=== PATIENT | female | born 1965 | race Caucasian/White ===

== ENCOUNTER 2016-11-07 00:25 | Emergency (ER) | payer MEDICAID, OTHER ==
[~2016-11-07] VITALS: Ht 170.2 cm; Wt 72.6 kg
[~2016-11-07 00:25] MED LIST: EFFEXOR50 MG PO; SYNTHROID0.075 MG PO
--- NOTE | 2016-11-07 00:25 | NUR ---
[facility] [place] TO ER OF1
[2016-11-07 00:29] VITALS: BP 110/76
--- NOTE | 2016-11-07 00:44 | NUR ---
PD CUSTODY PATIENT TO OVER FLOW
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
[2016-11-07] MEDS ORDERED: LIDOCAINE/EPI 1% 1:100000 20 ML VIAL INJ ONE (01:15)
[2016-11-07] MEDS ORDERED: BACITRACIN OINT 500 UNITS/GM PKT TP ONE (01:15)
[2016-11-07] MEDS ORDERED: HYDROcodone/APAP 5/325 MG 1 TAB TAB PO ONE (01:15)
--- NOTE | 2016-11-07 01:17 | NUR ---
MOVED TO ER BED 1, [place] PD AT BEDSIDE
--- NOTE | 2016-11-07 01:43 | NUR ---
BACITRACIN AND XYILOCAINE PULL AND IS AT BEDSIDE FOR ER MD DR PANIAGUA TO ADMINISTER
[2016-11-07] MEDS ORDERED: LIDOCAINE MPF 1% 50 MG/5 ML VIAL ONE (02:01)
[2016-11-07] MEDS ORDERED: LIDOCAINE 2% 1000 MG/50 ML VIAL INJ ONE (02:03)
[2016-11-07] MEDS ORDERED: ceFAZolin 1,000 MG VIAL IM ONE (02:30)
[2016-11-07] MEDS ORDERED: WATER STERILE 10 ML MC ONE (02:36)
--- NOTE | 2016-11-07 03:55 | NUR ---
Patient discharged with v/s stable. Written and verbal after care instructions given and explained. Patient alert, oriented and verbalized understanding of instructions. Ambulatory with steady gait. All questions addressed prior to discharge. ID band removed. Patient advised to follow up with PMD. Rx of NORCO 5/325, KEFLEX 500MG AND BACITRACIN 500U/G given. Patient educated on indication of medication including possible reaction and side effects. Opportunity to ask questions provided and answered.
[2016-11-07 03:56] VITALS: BP 117/72
== END 2016-11-07 03:55 ==
LOC: MED 00:25
DX: S62.522A Displaced fracture of distal phalanx of left thumb, initial encounter for closed fracture (principal); W34.00XA Accidental discharge from unspecified firearms or gun, initial encounter; Y93.89 Activity, other specified; Y92.89 Other specified places as the place of occurrence of the external cause; Y99.8 Other external cause status
CPT/HCPCS: 73140; 90471; 90715; 96372; 99284; J0690; J2001

== ENCOUNTER 2016-11-12 15:34 | Emergency (ER) | payer OTHER ==
[~2016-11-12] VITALS: Ht 165.1 cm; Wt 72.6 kg
[2016-11-12 17:01] VITALS: BP 149/96
--- NOTE | 2016-11-12 18:36 | NUR ---
PATIENT TO OF
--- NOTE | 2016-11-12 18:36 | NUR ---
DR. ELIS GONZALES PATIENT
--- NOTE | 2016-11-12 19:06 | NUR ---
awaiting for disposition
[2016-11-12] MEDS ORDERED: BACITRACIN OINT 500 UNITS/GM PKT TP ONE (19:16)
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
[2016-11-12 19:34] VITALS: BP 122/70
--- NOTE | 2016-11-12 19:37 | NUR ---
Patient discharged with v/s stable. Written and verbal after care instructions given and explained. Patient alert, oriented and verbalized understanding of instructions. Ambulatory with steady gait. All questions addressed prior to discharge. ID band removed. Patient advised to follow up with PMD. Rx of KEFLEX,BACTRIM,MOTRIN given. Patient educated on indication of medication including possible reaction and side effects. Opportunity to ask questions provided and answered.
== END 2016-11-12 19:37 | disposition home or self-care (01) ==
LOC: MED 15:34
DX: S61.012D Laceration without foreign body of left thumb without damage to nail, subsequent encounter (principal); W32.0XXD Accidental handgun discharge, subsequent encounter; Y92.810 Car as the place of occurrence of the external cause; Y99.8 Other external cause status

== ENCOUNTER 2016-11-29 13:01 | Emergency (ER) | payer OTHER ==
[~2016-11-29] VITALS: Ht 165.1 cm; Wt 72.6 kg
[2016-11-29 13:46] VITALS: BP 128/81
--- NOTE | 2016-11-29 14:49 | NUR ---
Patient ambulated to bed 01.
--- NOTE | 2016-11-29 14:59 | NUR ---
XRAY at bedside.
--- NOTE | 2016-11-29 15:00 | NUR ---
Dr. Lopez evaluating patient at bedside.
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
--- NOTE | 2016-11-29 16:37 | NUR ---
Patient ambulated to bed 06.
--- NOTE | 2016-11-29 16:41 | NUR ---
REPORT RECEIVED FROM EROS
[2016-11-29 17:23] VITALS: BP 122/76
--- NOTE | 2016-11-29 17:23 | NUR ---
Patient discharged with v/s stable. Written and verbal after care instructions given and explained. Patient verbalized understanding. Ambulatory with steady gait. All questions addressed prior to discharge. Advised to follow up with PMD.
== END 2016-11-29 17:23 | disposition home or self-care (01) ==
LOC: MED 13:01
DX: T81.33XA Disruption of traumatic injury wound repair, initial encounter (principal); R03.0 Elevated blood-pressure reading, without diagnosis of hypertension; W34.09XA Accidental discharge from other specified firearms, initial encounter; Y93.89 Activity, other specified; Y92.89 Other specified places as the place of occurrence of the external cause; Y99.8 Other external cause status
CPT/HCPCS: 73130; 73200; 81025; 99284; Q0092